=== PATIENT | female | born 1970 | race Native Hawaiian/Other Pacific Islander ===

== ENCOUNTER 2017-01-20 14:38 | Outpatient (CLI) | payer OTHER | END 2017-01-20 14:39 | disposition short-term general hospital (02) | LOC: AMB 14:38 | DX: M25.512 Pain in left shoulder (principal) | CPT/HCPCS: A0425; A0429 ==

== ENCOUNTER 2017-01-20 14:42 | Emergency (ER) | payer OTHER ==
[~2017-01-20] VITALS: Ht 162.6 cm; Wt 154.2 kg
== END 2017-01-20 16:12 | disposition home or self-care (01) ==
LOC: ED 14:42
DX: S40.012A Contusion of left shoulder, initial encounter (principal); V43.52XA Car driver injured in collision with other type car in traffic accident, initial encounter; Y93.89 Activity, other specified; Y92.89 Other specified places as the place of occurrence of the external cause
CPT/HCPCS: 99282

== ENCOUNTER 2017-10-13 13:52 | Emergency (ER) | payer OTHER ==
[~2017-10-13] VITALS: Ht 162.6 cm; Wt 149.7 kg
[2017-10-13 14:17] LABS: PLATELET COUNT 217 K/uL (152-353)
== END 2017-10-13 14:48 | disposition home or self-care (01) ==
LOC: ED 13:52
DX: R05 Cough (principal)
CPT/HCPCS: 36415; 85027; 87804; 99283